=== PATIENT | female | born 1985 | race Caucasian/White ===

== ENCOUNTER 2018-02-17 19:25 | Emergency (ER) | payer BC ==
[2018-02-17] MEDS ORDERED: Pantoprazole IV* 40 MG IV ONE (21:13)
[2018-02-17] MEDS ORDERED: Metoclopramide IV* 5 MG/ML 2 ML VIAL IV ONE (21:13)
[2018-02-17] MEDS ORDERED: NS 0.9% 1000 ML* 1,000 ML IV ONE (21:13)
[2018-02-17] MEDS ORDERED: Ketorolac INJ* 30 MG/ML 1 ML VIAL IV PUSH ONE (21:15)
[2018-02-17] MEDS ORDERED: diPHENhydraMINE IV* 50 MG/ML 1 ml VIAL (BENADRYL) IV ONE (21:16)
[2018-02-17 21:49] LABS: ABS Basophils 0 10^3/ul (0-0.2); ABS Eosinophils 0 10^3/ul (0-0.6); ABS Lymphocytes 1.3 10^3/ul (1.0-4.8); ABS Monocytes 0.8 10^3/ul (0-0.8); ABS Neutrophils 16.6 10^3/ul (1.5-7.7); ABS Nucleated RBC 0 10^3/ul; Eosinophil % 0.1 % (0-6); Hematocrit 42 % (35-47); Hemoglobin 14.3 g/dl (12.0-16.0); Lymphocyte % 6.9 % (25-47); Mean Corpuscular HGB Conc 34 g/dl (31-36); Mean Corpuscular Hemoglobin 34 pg (27-31); Mean Corpuscular Volume 100 fL (80-97); Mean Platelet Volume 9.2 um3 (7.4-10.4); Nucleated Red Blood Cells % 0; Platelet Count 242 10^3/ul (150-450); Red Blood Count 4.23 10^6/ul (4.0-5.4); Red Cell Distribution Width 13 % (10.5-15); White Blood Count 18.8 10^3/ul (3.5-10.8)
[2018-02-17 22:00] LABS: EGFR Non-African American 63.9 (>60)
[2018-02-18 00:09] LABS: Urine Appearance Cloudy; Urine Blood 1+ (Negative); Urine Color Yellow; Urine Ketones 2+ (Negative); Urine Protein 1+(30 mg/dL) (Negative); Urine Specific Gravity 1.025 (1.010-1.030); Urine Urobilinogen Negative (Negative)
[2018-02-18] MEDS ORDERED: Levofloxacin TAB* 500 MG PO ONE (00:14)
[2018-02-18 00:56] VITALS: BP 118/71
--- NOTE | 2018-02-18 03:03 | ED ---
Christina Hanna Julia, scribed for Katie Chen MD on 02/17/18 at 2109 . Abdominal Pain/Female - HPI Summary HPI Summary: This patient is a 32 year old F presenting to [facility] with a chief complaint of n /v/d for the past five days. She reports symptoms began with diarrhea for the first two days that resolved, but had vomiting for the past three days. Additionally c/o epigastric abdominal pain, rated 7/10 in severity. Pt reports recent head cold with lightheadedness. She reports a hx of similar GI symptoms and has been seeing her PCP for these issues with no dx, but believes she has GERD. - History of Current Complaint Chief Complaint: EDNauseaVomitDiarrh Stated Complaint: VOMITING Time Seen by Provider: 02/17/18 21:01 Hx Obtained From: Patient Onset/Duration: Lasting Days Timing: Constant Pain Intensity: 7 Pain Scale Used: 0-10 Numeric Location: Epigastric Alleviating Factor(s): Nothing Associated Signs and Symptoms: Positive: Dizzy, Nausea, Vomiting, Diarrhea, Other: - recent illness Allergies/Adverse Reactions: Allergies Allergy/AdvReac Type Severity Reaction Status Date / Time codeine Allergy Nausea And Verified 02/17/18 19:35 Vomiting morphine Allergy Nausea And Verified 02/17/18 19:35 Vomiting Sulfa (Sulfonamide Allergy Hives Verified 02/17/18 19:35 Antibiotics) PMH/Surg Hx/FS Hx/Imm Hx GI History: Reports: Hx Gastroesophageal Reflux Disease - undiagnose EENT History: Denies: Hx Deafness Infectious Disease History: No Infectious Disease History: Denies: Traveled Outside the [place] in Last 30 Days - Family History Known Family History: Positive: Hypertension - Social History Occupation: Employed Full-time Review of Systems Positive: Other - lightheaded Positive: Abdominal Pain, Vomiting, Diarrhea, Nausea All Other Systems Reviewed And Are Negative: Yes Physical Exam - Summary Physical Exam Summary: VITAL SIGNS: Reviewed. GENERAL: Patient is a well-developed and nourished female who is lying comfortable in the stretcher. Patient is not in any acute respiratory distress. HEAD AND FACE: No signs of trauma. No ecchymosis, hematomas or skull depressions. No sinus tenderness. EYES: PERRLA, EOMI x 2, No injected conjunctiva, no nystagmus. EARS: Hearing grossly intact. Ear canals and tympanic membranes are within normal limits. MOUTH: Oropharynx within normal limits. NECK: Supple, trachea is midline, no adenopathy, no JVD, no carotid bruit, no c- spine tenderness, neck with full ROM. CHEST: Symmetric, no tenderness at palpation LUNGS: Clear to auscultation bilaterally. No wheezing or crackles. CVS: Regular rate and rhythm, S1 and S2 present, no murmurs or gallops appreciated. ABDOMEN: Soft, epigastric tenderness. No signs of distention. No rebound no guarding, and no masses palpated. Bowel sounds are normal. EXTREMITIES: FROM in all major joints, no edema, no cyanosis or clubbing. NEURO: Alert and oriented x 3. No acute neurological deficits. Speech is normal and follows commands. SKIN: Dry and warm Triage Information Reviewed: Yes Vital Signs On Initial Exam: Initial Vitals Temp Pulse Resp BP Pulse Ox 97.2 F 48 18 124/62 98 02/17/18 19:35 02/17/18 19:35 02/17/18 19:35 02/17/18 19:35 02/17/18 19:35 Vital Signs Reviewed: Yes Diagnostics - Vital Signs Vital Signs Temp Pulse Resp BP Pulse Ox 02/17/18 20:11 97.5 F 58 24 110/75 97 02/17/18 19:35 97.2 F 48 18 124/62 98 - Laboratory Result Diagrams: 02/17/18 21:32 02/17/18 21:32 Lab Statement: Any lab studies that have been ordered have been reviewed, and results considered in the medical decision making process. - EKG 20:08 Cardiac Rate: Bradycardia - at 55 BPM EKG Rhythm: Sinus Bradycardia EKG Interpretation: Normal axis. Normal interval. No ischemic changes - Additional Comments Diagnostic Additional Comments: A Gallbladder US reveals, as per radiologist: No acute findings. Dr. Chen has reviewed this report. Re-Evaluation - Re-Evaluation 1 Re-Evaluation Time: 00:13 Change: Improved - Pt is feeling better. Pt informed of results Abdominal Pain Fem Course/Dx - Course Course Of Treatment: 32 year old F presenting to [facility] with a chief complaint of n/v/d for the past five days. She reports symptoms began with diarrhea for the first two days that resolved, but had vomiting for the past three days. Additionally c/o epigastric abdominal pain. Pt believes symptoms are GERD related. EKG and Gallbladder US are negative for acute pathology. Patient is given IV fluids, Protonix, Reglan, Toradol, and Benadryl. Patient is feeling better while in ED. UA is indicative of UTI. Patient will be discharged home with a prescription for Levolfloxacin, Reglan, and Protonix. Patient is agreeable with this plan. - Diagnoses Provider Diagnoses: UTI (urinary tract infection), GERD (gastroesophageal reflux disease) Discharge - Sign-Out/Discharge Documenting (check all that apply): Discharge/Admit/Transfer - Discharge Plan Condition: Stable Disposition: HOME Prescriptions: Levofloxacin TAB* [Levaquin TAB*] 500 mg PO DAILY #7 tab Metoclopramide TAB* [Reglan TAB*] 10 mg PO Q6H PRN #30 tab PRN Reason: Nausea/Vomiting Pantoprazole TAB (NF) [Protonix TAB (NF)] 40 mg PO DAILY #30 tab Patient Education Materials: Urinary Tract Infection in Women (ED), Gastroesophageal Reflux Disease (ED) Referrals: [facility] [place] [facility] REFERRAL [Outside] - As Soon As Possible (Follow up with the Physician Regerral number if you need a primary care provider. ) Additional Instructions: RETURN TO EMERGENCY DEPARTMENT FOR ANY NEW OR WORSENING SYMPTOMS The documentation as recorded by the Christina gray Julia accurately reflects the service I personally performed and the decisions made by , Katie Chen MD.
--- NOTE | 2018-02-19 07:14 | RAD ---
INDICATION: Right upper quadrant pain. COMPARISON: Comparison is made with a prior study from December 01, 2009. TECHNIQUE: Multiple real-time images of the right upper quadrant were obtained. FINDINGS: The gallbladder appear normal. No gallbladder wall thickening or pericholecystic fluid is present. No intra or extrahepatic ductal distention is present. The common bile duct measured 0.4 cm in diameter. The liver is normal in size without significant focal abnormality. The pancreas is partially obscured by overlying bowel gas. The right kidney is normal in size without evidence for hydronephrosis. IMPRESSION: NEGATIVE EXAM.
== END 2018-02-18 00:55 | disposition home or self-care (01) ==
LOC: ED 19:25
DX: N39.0 Urinary tract infection, site not specified (principal); K21.9 Gastro-esophageal reflux disease without esophagitis; Z88.5 Allergy status to narcotic agent
CPT/HCPCS: 36415; 76705; 80053; 81003; 81015; 83690; 83735; 84702; 85025; 86140; 87086; 93005; 96360; 96374; 96375; 99284; J1200; J1885; J2765